=== PATIENT | male | born 1970 | race Caucasian/White ===

== ENCOUNTER 2017-06-27 20:34 | Emergency (ER) | payer SELFPAY ==
[~2017-06-27] VITALS: Ht 172.7 cm; Wt 100.0 kg
[2017-06-27 20:45] VITALS: BP 156/92; PULSE 115; RESP 18; TEMP 98.7; O2SAT 100
[2017-06-27] MEDS ORDERED: SODIUM CHLORIDE 0.9% FLUSH 10 ML FLUSH IVF PRN (21:45)
[2017-06-27] MEDS ORDERED: LISI-519 PO (21:51)
[2017-06-27] MEDS ORDERED: ASPI-183 PO (21:51)
--- NOTE | 2017-06-27 22:00 | PD ---
HPI Chief Complaint: Chest Pain Time Seen by Provider: 21:43 Travel History International Travel<30 days: No Contact w/Intl Traveler<30days: No Traveled to known affect area: No History of Present Illness HPI 46yo M with PMH of HTN and asthma presents to the ED with c/o chest pain for 1 week. Said it is midsternal, and sometimes to left side and intermittent. Associated with sob and left arm tingling and numbness. No exacerbating or alleviating factors. Pt said he had a procedure in 2006 that sounded like cardiac cath in [facility] that was negative. Does not have a side show entertainer. Pt did recently increase his bench press to 260. Denies any fever, hemoptysis, PE/DVT, n/v, abdominal pain, focal weakness or numbness. Denies cig smoking or drug use. Denies any family history of sudden cardiac deaths. PFSH Past Medical History Asthma: Yes Glaucoma: Yes Hypertension: Yes Tetanus Vaccination: < 5 Years Influenza Vaccination: No Past Surgical History Surgical History: No Previous Surgery Social History Alcohol Use: No Tobacco Use: No Substance Use: No Allergies-Medications (Allergen,Severity, Reaction): Coded Allergies: No Known Allergies (Unverified , 06/27/17) Reported Meds & Prescriptions Reported Meds & Active Scripts Active Reported Lisinopril 5 Mg Tab 5 Mg PO DAILY Aspirin 325 Mg Tab 325 Mg PO DAILY Review of Systems Except as stated in HPI: all other systems reviewed are Neg Physical Exam Narrative GENERAL: 46yo M not in distress. SKIN: Focused skin assessment warm/dry. HEAD: Atraumatic. Normocephalic. EYES: Pupils equal and round. No scleral icterus. No injection or drainage. ENT: No nasal bleeding or discharge. Mucous membranes pink and moist. NECK: Trachea midline. No JVD. CARDIOVASCULAR: Regular rate and rhythm. No murmur appreciated. RESPIRATORY: No accessory muscle use. Clear to auscultation. Breath sounds equal bilaterally. CHEST WALL: +Point tenderness left chest. No rash. GASTROINTESTINAL: Abdomen soft, non-tender, nondistended. MUSCULOSKELETAL: No obvious deformities. No clubbing. No cyanosis. No edema. NEUROLOGICAL: Awake and alert. No obvious cranial nerve deficits. Motor grossly within normal limits. Normal speech. PSYCHIATRIC: Appropriate mood and affect; insight and judgment normal. Data Data Last Documented VS Vital Signs Date Time Temp Pulse Resp B/P (MAP) Pulse Ox O2 Delivery O2 Flow Rate FiO2 06/28/17 00:23 97 18 147/71 (96) 100 06/27/17 20:45 98.7 Orders Orders Electrocardiogram (06/27/17 21:42) Ckmb (Isoenzyme) Profile (06/27/17 21:42) Complete Blood Count With Diff (06/27/17 21:42) Comprehensive Metabolic Panel (06/27/17 21:42) Magnesium (Mg) (06/27/17 21:42) Prothrombin Time / Inr (Pt) (06/27/17 21:42) Act Partial Throm Time (Ptt) (06/27/17 21:42) Troponin I (06/27/17 21:42) Lipase (06/27/17 21:42) Chest, Single Ap (06/27/17 21:42) Ecg Monitoring (06/27/17 21:42) Bilateral Bp Monitoring (06/27/17 21:42) Iv Access Insert/Monitor (06/27/17 21:42) Oximetry (06/27/17 21:42) Oxygen Administration (06/27/17 21:42) Sodium Chloride 0.9% Flush (Ns Flush) (06/27/17 21:45) D-Dimer (06/27/17 21:55) CKMB (06/27/17 21:55) CKMB% (06/27/17 21:55) Ed Discharge Order (06/28/17 01:20) Labs Laboratory Tests Test 06/27/17 21:55 White Blood Count 8.7 TH/MM3 Red Blood Count 5.29 MIL/MM3 Hemoglobin 16.5 GM/DL Hematocrit 46.2 % Mean Corpuscular Volume 87.5 FL Mean Corpuscular Hemoglobin 31.3 PG Mean Corpuscular Hemoglobin Concent 35.8 % Red Cell Distribution Width 12.9 % Platelet Count 240 TH/MM3 Mean Platelet Volume 7.4 FL Neutrophils (%) (Auto) 66.0 % Lymphocytes (%) (Auto) 25.2 % Monocytes (%) (Auto) 7.4 % Eosinophils (%) (Auto) 1.0 % Basophils (%) (Auto) 0.4 % Neutrophils # (Auto) 5.7 TH/MM3 Lymphocytes # (Auto) 2.2 TH/MM3 Monocytes # (Auto) 0.6 TH/MM3 Eosinophils # (Auto) 0.1 TH/MM3 Basophils # (Auto) 0.0 TH/MM3 CBC Comment AUTO DIFF Differential Comment AUTO DIFF CONFIRMED Platelet Estimate NORMAL Platelet Morphology Comment NORMAL Prothrombin Time 10.2 SEC Prothromb Time International Ratio 1.0 RATIO Activated Partial Thromboplast Time 27.2 SEC D-Dimer Quantitative (PE/DVT) 0.20 MG/L FEU Blood Urea Nitrogen 17 MG/DL Creatinine 1.01 MG/DL Random Glucose 101 MG/DL Total Protein 8.1 GM/DL Albumin 4.3 GM/DL Calcium Level 9.1 MG/DL Magnesium Level 2.2 MG/DL Alkaline Phosphatase 116 U/L Aspartate Amino Transf (AST/SGOT) 43 U/L Alanine Aminotransferase (ALT/SGPT) 60 U/L Total Bilirubin 0.5 MG/DL Sodium Level 137 MEQ/L Potassium Level 3.5 MEQ/L Chloride Level 102 MEQ/L Carbon Dioxide Level 28.6 MEQ/L Anion Gap 6 MEQ/L Estimat Glomerular Filtration Rate 79 ML/MIN Total Creatine Kinase 328 U/L Creatine Kinase MB 1.9 NG/ML Creatine Kinase MB % 0.6 % Troponin I LESS THAN 0.02 NG/ML Lipase 287 U/L [facility] Medical Decision Making Medical Screen Exam Complete: Yes Emergency Medical Condition: Yes Interpretation(s) EKG: Sinus tachycardia at 109bpm. Normal axis. No ST segment elevation or depression. Differential Diagnosis ACS vs. musculoskeletal pain vs. GERD Narrative Course 46yo M with left sided chest pain that is intermittent for 1 week. Pt took aspirin at home. Labs reviewed, no leukocytosis. H/H normal. Troponin negative. Lipase normal. CPK mildly elevated at 328. Creatinine normal. D- dimer negative. CXR negative. Pt reevaluated at bedside and said he has no chest pain and not sob anymore. Offered chest pain center observation but pt said he has to see a recovery collector tomorrow and cant stay. Chest pain is atypical so return precautions given. Diagnosis Primary Impression: Chest pain Qualified Codes: R07.9 - Chest pain, unspecified Referrals: Benton Enrique DO call for appointment Patient Instructions: General Instructions Departure Forms: Tests/Procedures Additional Instructions: Please follow up with your primary care physician in 1-2 days. Return to the ED if symptoms worsen. Med/Other Pt SpecificInfo: No Change to Meds Disposition: 01 DISCHARGE HOME Condition: Stable AlaynaLiliana DO Jun 27, 2017 22:00
--- NOTE | 2017-06-27 22:27 | RADRPT ---
EXAM DATE/TIME: 06/27/2017 22:01 [facility] COMPARISON: No previous studies available for comparison. INDICATIONS : Chest pain. MEDICAL HISTORY : None. SURGICAL HISTORY : None. ENCOUNTER: Initial ACUITY: 4 - 6 days PAIN SCORE: 6/10 LOCATION: Bilateral chest FINDINGS: A single view of the chest demonstrates the lungs to be symmetrically aerated without evidence of mas s, infiltrate or effusion. The cardiomediastinal contours are unremarkable. Osseous structures are intact. CONCLUSION: The lungs are clear. Chase Pierce MD on June 27, 2017 at 22:26 Board Certified Radiologist. This report was verified electronically.
[2017-06-27 22:36] LABS: AUTOMATED NEUTROPHIL # 5.7 TH/MM3 (1.8-7.7); BASOPHIL % 0.4 % (0.0-2.0); EOSINOPHIL # 0.1 TH/MM3 (0-0.4); HEMATOCRIT 46.2 % (39.0-51.0); HEMOGLOBIN 16.5 GM/DL (13.0-17.0); LYMPH % 25.2 % (9.0-44.0); LYMPHOCYTE # 2.2 TH/MM3 (1.0-4.8); MEAN CELL VOLUME 87.5 FL (80.0-100.0); MEAN CORPUSCULAR HEMOGLOBIN 31.3 PG (27.0-34.0); MEAN CORPUSCULAR HGB CONC 35.8 % (32.0-36.0); MEAN PLATELET VOLUME 7.4 FL (7.0-11.0); MONO % 7.4 % (0.0-8.0); MONOCYTE # 0.6 TH/MM3 (0-0.9); PLATELET COUNT 240 TH/MM3 (150-450); RED BLOOD COUNT 5.29 MIL/MM3 (4.50-5.90); RED CELL DISTRIBUTION WIDTH 12.9 % (11.6-17.2); WHITE BLOOD COUNT 8.7 TH/MM3 (4.0-11.0)
[2017-06-27 22:54] LABS: ALBUMIN 4.3 GM/DL (3.4-5.0); ALKALINE PHOSPHATASE 116 U/L (45-117); ALT (GPT) 60 U/L (12-78); AST (GOT) 43 U/L (15-37); BICARBONATE 28.6 MEQ/L (21.0-32.0); BLOOD UREA NITROGEN 17 MG/DL (7-18); CALCIUM 9.1 MG/DL (8.5-10.1); CHLORIDE 102 MEQ/L (98-107); CREATININE 1.01 MG/DL (0.60-1.30); GLOMERULAR FILTRATION RATE 79 ML/MIN (>89); GLUCOSE,RANDOM 101 MG/DL (74-106); MAGNESIUM 2.2 MG/DL (1.5-2.5); SODIUM (NA) 137 MEQ/L (136-145); TOTAL BILIRUBIN ADULT 0.5 MG/DL (0.2-1.0); TOTAL PROTEIN 8.1 GM/DL (6.4-8.2); TROPONIN I LESS THAN 0.02 NG/ML (0.02-0.05)
[2017-06-27 22:56] LABS: PROTHROMBIN TIME - PATIENT 10.2 SEC (9.8-11.6)
[2017-06-27 23:19] LABS: D-DIMER 0.2 MG/L FEU (0.00-0.50)
[2017-06-28 00:23] VITALS: BP 147/71; PULSE 97; RESP 18; O2SAT 100
--- NOTE | 2017-06-28 18:13 | EKG ---
Date Performed: 06/27/2017 Time Performed: 21:52:07 PTAGE: 46 years EKG: SINUS TACHYCARDIA ABNORMAL RHYTHM ECG NO PREVIOUS TRACING DOCTOR: Candy Gonzalez Interpretating Date/Time 06/28/2017 18:11:35
== END 2017-06-28 01:41 | disposition home or self-care (01) ==
LOC: NEPC 20:34
DX: R07.9 Chest pain, unspecified (principal); I10 Essential (primary) hypertension; Z79.899 Other long term (current) drug therapy
CPT/HCPCS: 71045; 80053; 82550; 82552; 83690; 83735; 84484; 85025; 85379; 85610; 85730; 93005; 99285